=== PATIENT | female | born 2000 | race Two or more races ===

== ENCOUNTER 2021-04-30 14:46 | Emergency (ER) | payer OTHER ==
[~2021-04-30] VITALS: Ht 154.9 cm; Wt 75.3 kg
[2021-04-30] MEDS ORDERED: PRENA1 TRUE CO1 EACH (15:19)
[2021-04-30] MEDS ORDERED: VITAMIN D-40010 MCG (15:20)
== END 2021-04-30 17:33 | disposition home or self-care (01) ==
LOC: ER 14:46
DX: R10.2 Pelvic and perineal pain (principal); O26.892 Other specified pregnancy related conditions, second trimester; Z3A.21 21 weeks gestation of pregnancy; W07.XXXA Fall from chair, initial encounter; X58.XXXA Exposure to other specified factors, initial encounter; Z91.81 History of falling

== ENCOUNTER 2021-06-08 15:55 | Emergency (ER) | payer OTHER ==
[~2021-06-08] VITALS: Ht 180.3 cm; Wt 76.2 kg
[~2021-06-08 15:55] MED LIST: PRENA1 TRUE CO1 EACH; VITAMIN D-40010 MCG
[2021-06-08] MEDS ORDERED: MUCINEX DM ER1 EAC1 PO (22:33)
[2021-06-08] MEDS ORDERED: IPRAT-ALBUT 0.5-3 ML IH (22:33)
[2021-06-08] MEDS ORDERED: BUDESONIDE0.5 MG/2 M IH (22:33)
== END 2021-06-08 23:33 ==
LOC: ER 15:55
DX: U07.1 COVID-19 (principal); Z3A.21 21 weeks gestation of pregnancy; J98.01 Acute bronchospasm; O26.892 Other specified pregnancy related conditions, second trimester

== ENCOUNTER 2021-06-10 09:04 | Emergency (ER) | payer OTHER ==
[~2021-06-10] VITALS: Ht 154.9 cm; Wt 76.2 kg
[~2021-06-10 09:04] MED LIST changes: +BUDESONIDE0.5 MG/2 M IH; +IPRAT-ALBUT 0.5-3 ML IH; +MUCINEX DM ER1 EAC1 PO
== END 2021-06-10 13:12 | disposition home or self-care (01) ==
LOC: ER 09:04
DX: U07.1 COVID-19 (principal); Z33.1 Pregnant state, incidental; Z3A.00 Weeks of gestation of pregnancy not specified

== ENCOUNTER 2021-06-23 13:57 | Outpatient (CLI) | payer OTHER | END 2021-06-23 15:45 | disposition home or self-care (01) | LOC: PRENATAL 13:57 | PROVIDERS: ATTEND Obstetrics & Gynecology Maternal & Fetal Medicine | DX: O35.0XX1 Maternal care for (suspected) central nervous system malformation in fetus, fetus 1 (principal); O35.3XX1 Maternal care for (suspected) damage to fetus from viral disease in mother, fetus 1; O98.512 Other viral diseases complicating pregnancy, second trimester; O28.1 Abnormal biochemical finding on antenatal screening of mother; Z36.89 Encounter for other specified antenatal screening; Z3A.23 23 weeks gestation of pregnancy ==

== ENCOUNTER 2021-08-26 15:19 | Outpatient (CLI) | payer OTHER | END 2021-08-26 16:15 | disposition home or self-care (01) | LOC: PRENATAL 15:19 | PROVIDERS: ATTEND Obstetrics & Gynecology Maternal & Fetal Medicine | DX: O26.849 Uterine size-date discrepancy, unspecified trimester (principal); O35.0XX0 Maternal care for (suspected) central nervous system malformation in fetus, not applicable or unspecified; O28.1 Abnormal biochemical finding on antenatal screening of mother; O36.8199 Decreased fetal movements, unspecified trimester, other fetus; Z3A.33 33 weeks gestation of pregnancy ==

== ENCOUNTER 2021-10-19 06:33 | Inpatient (IN) | payer OTHER ==
[~2021-10-19] VITALS: Ht 154.9 cm; Wt 2.7 kg
== END 2021-10-23 12:18 | disposition home or self-care (01) | DRG 788 ==
LOC: LDR 06:33 → OB/GYN 06:33 → O/R 10-20 09:39 → OB/GYN 10-20 11:45
PROVIDERS: ADMIT Obstetrics & Gynecology; ATTEND Obstetrics & Gynecology
PROC: 4A1HXCZ Monitoring of Products of Conception, Cardiac Rate, External Approach (ICD-10-PCS; 2021-10-19)
PROC: 10D00Z1 Extraction of Products of Conception, Low, Open Approach (ICD-10-PCS; principal; 2021-10-20 08:45)
DX: O76 Abnormality in fetal heart rate and rhythm complicating labor and delivery (principal); O62.0 Primary inadequate contractions; Z3A.40 40 weeks gestation of pregnancy; Z37.0 Single live birth; Z20.822 Contact with and (suspected) exposure to COVID-19

== ENCOUNTER 2023-11-26 11:31 | Emergency (ER) | payer OTHER ==
[~2023-11-26] VITALS: Ht 154.9 cm; Wt 79.8 kg
[2023-11-26 13:14] LABS: HEMOGLOBIN 12.4 g/dL (12.0-15.00); MEAN CELL VOLUME 84.4 fL (80.00-100.00); MEAN CORPUSCULAR HGB CONC 34.3 g/dl (32.0-36.0); PLATELET COUNT 247 K/uL (150-450); RED BLOOD COUNT 4.27 M/uL (4.00-6.00); RED CELL DISTRIBUTION WIDTH 14.2 % (11.5-14.5)
[2023-11-26 13:43] LABS: URINE APPEARANCE Turbid; URINE BILIRRUBIN Negative (NEGATIVE); URINE BLOOD Moderate; URINE COLOR Dark Yellow; URINE GLUCOSE Negative (NEGATIVE); URINE LEUKOCYTE Moderate; URINE NITRATE Negative; URINE PROTEIN 30 (NEGATIVE)
[2023-11-26 13:44] LABS: URINE BACTERIA 316.2 uL (0.0-1933); URINE EPITHELIAL CELLS 7.5 uL (0.0-38.8); URINE RBC 175.5 uL (0.0-20.8)
[2023-11-26 13:48] LABS: CALCIUM 9.1 mg/dL (8.5-10.1); CREATININE SERUM 0.54 mg/dL (0.55-1.02); GFR 138.7; POTASSIUM 3.59 mEq/L (3.5-5.1)
[2023-11-26 14:05] LABS: URINE WBC > 5548.3 uL (0.0-23.2)
[2023-11-26] MEDS ORDERED: CEFTRIAXONE SODIUM 1,000 MG VIAL IM STA (14:26)
== END 2023-11-26 14:43 | disposition home or self-care (01) ==
LOC: ER 11:32
PROVIDERS: General Practice
DX: O26.892 Other specified pregnancy related conditions, second trimester (principal); Z3A.18 18 weeks gestation of pregnancy; R30.0 Dysuria

== ENCOUNTER 2024-02-10 03:31 | Emergency (ER) | payer OTHER ==
[~2024-02-10] VITALS: Ht 154.9 cm; Wt 88.5 kg
[2024-02-10] MEDS ORDERED: MAGNESIUM SULFATE IN WATER 4 GM/100 ML PIGGYBACK IV STA (04:14)
[2024-02-10] MEDS ORDERED: METHYLPREDNISOLONE SOD SUCC 125 MG VIAL IV STA (04:15)
[2024-02-10] MEDS ORDERED: HYDROCODONE/CHLORPHEN P-STIREX 5 ML ML PO STA (04:15)
[2024-02-10] MEDS ORDERED: IPRATROPIUM/ALBUTEROL SULFATE 3 ML AMPUL.NEB IH ONE (04:17)
[2024-02-10] MEDS ORDERED: MAGNESIUM SULFATE 50% 5,000 MG/10 ML VIAL ONE (04:22)
[2024-02-10] MEDS ORDERED: METHYLPREDNISOLONE SOD SUCC 125 MG VIAL ONE (04:22)
[2024-02-10 04:23] LABS: HEMATOCRIT 30.6 % (36.0-45.00); HEMOGLOBIN 10.7 g/dL (12.0-15.00); MEAN CELL VOLUME 82.2 fL (80.00-100.00); MEAN CORPUSCULAR HEMOGLOBIN 28.7 pg (27.00-32.0); PLATELET COUNT 216 K/uL (150-450); RED BLOOD COUNT 3.73 M/uL (4.00-6.00); RED CELL DISTRIBUTION WIDTH 13.5 % (11.5-14.5)
[2024-02-10 04:40] LABS: ABG PH 7.439 (7.35-7.45); ABG PO2 114.5 mmHg (80-100); ABG pCO2 28.4 mmHg (35-45); BASE EXCESS -3.8 mmol/l; SaO2 98.6 %
[2024-02-10 04:41] LABS: BICARBONATE 18.8 mmol/l (23-25); Tco2 19.7 mmol/l; allen test SATISFACTORY; o2 21 %; puncture site RADIAL RIGHT
[2024-02-10 04:46] LABS: ALBUMIN 2.6 gm/dL (3.4-5.0); BILIRUBIN TOTAL 0.14 mg/dL (0.3-1.2); CALCIUM 8.8 mg/dL (8.5-10.1); CREATININE SERUM 0.49 mg/dL (0.55-1.02); GFR 155.16; GLOBULINA 3.8 G/DL (2.4-3.5); POTASSIUM 3.82 mEq/L (3.5-5.1); TOTAL PROTEIN 6.4 gm/dL (6.4-8.2)
[2024-02-10] MEDS ORDERED: IPRATROPIUM/ALBUTEROL SULFATE 3 ML AMPUL.NEB IH SCH (05:00)
== END 2024-02-10 07:24 | disposition home or self-care (01) ==
LOC: ER 03:32
DX: Z34.93 Encounter for supervision of normal pregnancy, unspecified, third trimester (principal); J45.902 Unspecified asthma with status asthmaticus; R05.9 Cough, unspecified; Z20.822 Contact with and (suspected) exposure to COVID-19

== ENCOUNTER 2024-03-05 20:23 | Inpatient (IN) | payer OTHER ==
[~2024-03-05] VITALS: Ht 154.9 cm; Wt 88.0 kg
[2024-03-05 19:16] VITALS: BP 104/65
[~2024-03-05 20:23] MED LIST changes: -0.9 % SODIUM CHLORIDE 1,000 ML IV ONE; -FAMOtidine 10 MG/ML (4ML VIAL) IV ONE; -IRON325 MG; -PROAIR RESPICL90 MCG
[2024-03-05] MEDS ORDERED: IRON325 MG (20:43)
[2024-03-05] MEDS ORDERED: GUAIFENESIN 200 MG/10 ML BLIST.PACK PO PRN (22:00)
[2024-03-05] MEDS ORDERED: LEVALBUTEROL HCL 1.25 MG/3 ML SOLUTION IH PRN (22:00)
[2024-03-05] MEDS ORDERED: hydrOXYzine PAMOATE 50 MG CAPSULE PO PRN (22:30)
[2024-03-05] MEDS ORDERED: PROAIR RESPICL90 MCG (22:47)
[2024-03-05] MEDS ORDERED: RINGERS SOLUTION,LACTATED 1,000 ML IV SCH (23:15)
[2024-03-05 23:25] VITALS: BP 103/58; O2SAT 99
[2024-03-06] VITALS (7 sets, daily range): BP systolic 97–122; BP diastolic 61–73; O2SAT 99–100
[2024-03-07 03:40] VITALS: BP 96/56
[2024-03-07 06:06] VITALS: BP 92/55; O2SAT 99
[2024-03-07 12:37] VITALS: BP 96/58; O2SAT 97
[2024-03-07] MEDS ORDERED: MAG HYDROX/ALUMINUM HYD/SIMETH 30 ML BLIST.PACK PO SCH (13:00)
[2024-03-07 15:30] VITALS: BP 103/66; O2SAT 99
[2024-03-07] MEDS ORDERED: FAMOtidine 20 MG TABLET PO SCH (17:00)
[2024-03-07] MEDS ORDERED: BUDESONIDE 0.5 MG/2 ML AMPUL.NEB IH SCH (17:00)
[2024-03-07] MEDS ORDERED: LEVALBUTEROL HCL 0.63 MG/3 ML SOLUTION IH SCH (18:00)
[2024-03-07 19:43] VITALS: BP 100/61; O2SAT 100
[2024-03-07 23:34] VITALS: BP 97/60
[2024-03-08 04:54] VITALS: BP 100/64
[2024-03-08 06:02] VITALS: BP 86/51; O2SAT 99
[2024-03-08 07:22] VITALS: BP 103/67
[2024-03-08] MEDS ORDERED: SOD FERRIC GLUC COMPLX/SUCROSE 125 MG in 0.9 % SODIUM CHLORIDE 100 ML IV SCH (09:00)
[2024-03-08] MEDS ORDERED: BUDESONIDE 0.5 MG/2 ML AMPUL.NEB IH SCH (09:00)
[2024-03-08 11:26] VITALS: BP 111/60
[2024-03-08 15:13] VITALS: BP 99/65
[2024-03-08] MEDS ORDERED: XOPENEX HFA15 GM IH (16:42)
== END 2024-03-08 17:50 | disposition home or self-care (01) | DRG 833 ==
LOC: OBS/DEL 20:23 → LDR 03-06 09:28
PROVIDERS: ADMIT Specialist; ATTEND Specialist
PROC: 4A1HXCZ Monitoring of Products of Conception, Cardiac Rate, External Approach (ICD-10-PCS; principal; 2024-03-06)
PROC: 3E0F7GC Introduction of Other Therapeutic Substance into Respiratory Tract, Via Natural or Artificial Opening (ICD-10-PCS; 2024-03-06)
PROC: BY4FZZZ Ultrasonography of Third Trimester, Single Fetus (ICD-10-PCS; 2024-03-06)
PROC: BU4CZZZ Ultrasonography of Uterus and Ovaries (ICD-10-PCS; 2024-03-06)
DX: O26.893 Other specified pregnancy related conditions, third trimester (principal); R05.9 Cough, unspecified; E86.0 Dehydration; R00.0 Tachycardia, unspecified; O60.03 Preterm labor without delivery, third trimester; O36.8130 Decreased fetal movements, third trimester, not applicable or unspecified; O26.843 Uterine size-date discrepancy, third trimester; O99.013 Anemia complicating pregnancy, third trimester; D64.9 Anemia, unspecified; Z3A.33 33 weeks gestation of pregnancy; Z20.822 Contact with and (suspected) exposure to COVID-19

== ENCOUNTER → 2024-03-05 | Emergency (ER) | payer OTHER ==
[~2024-03-05] VITALS: Ht 154.9 cm; Wt 89.4 kg
[~2024-03-05] MED LIST changes: +0.9 % SODIUM CHLORIDE 1,000 ML IV ONE; +FAMOtidine 10 MG/ML (4ML VIAL) IV ONE; +IRON325 MG; +PROAIR RESPICL90 MCG
[2024-03-05 18:23] LABS: HEMATOCRIT 30.6 % (36.0-45.00); HEMOGLOBIN 10.4 g/dL (12.0-15.00); MEAN CELL VOLUME 82.2 fL (80.00-100.00); PLATELET COUNT 215 K/uL (150-450); RED BLOOD COUNT 3.72 M/uL (4.00-6.00); RED CELL DISTRIBUTION WIDTH 13.6 % (11.5-14.5)
[2024-03-05 18:34] LABS: URINE APPEARANCE Clear; URINE BILIRRUBIN Negative (NEGATIVE); URINE BLOOD Negative; URINE COLOR Yellow; URINE GLUCOSE Negative (NEGATIVE); URINE KETONE Negative (NEGATIVE); URINE LEUKOCYTE Negative; URINE NITRATE Negative; URINE PROTEIN Negative (NEGATIVE); URINE UROBILINOGEN 0.2 E.U./dl
[2024-03-05 18:35] LABS: URINE BACTERIA 792.4 uL (0.0-1933); URINE EPITHELIAL CELLS 58.5 uL (0.0-38.8); URINE RBC 3.6 uL (0.0-20.8); URINE WBC 6.6 uL (0.0-23.2)
[2024-03-05 18:49] LABS: INR 0.96; PROTHROMBIN TIME 10.5 SECONDS (9.0-11.5)
[2024-03-05 18:59] LABS: D DIMER 4.27 MG/L; PARTIAL THROMBOPLASTIN TIME 27.2 SECONDS (22.0-34.0)
[2024-03-05 19:14] LABS: ALBUMIN 2.7 gm/dL (3.4-5.0); BILIRUBIN TOTAL 0.18 mg/dL (0.3-1.2); CALCIUM 8.8 mg/dL (8.5-10.1); CREATININE SERUM 0.51 mg/dL (0.55-1.02); GFR 148.15; GLOBULINA 3.1 G/DL (2.4-3.5); POTASSIUM 4.17 mEq/L (3.5-5.1); TOTAL PROTEIN 5.8 gm/dL (6.4-8.2)
[2024-03-05 23:31] LABS: ABG PO2 103.1 mmHg (80-100); ABG pCO2 27.7 mmHg (35-45); BICARBONATE 19.2 mmol/l (23-25); Tco2 20.1 mmol/l; o2 21 %
[2024-03-05 23:32] LABS: allen test SATISFACTORY; puncture site RADIAL LEFT
[2024-03-05 23:35] LABS: SaO2 98.2 %
== END | disposition home or self-care (01) ==
LOC: ER 15:44
PROVIDERS: General Practice
DX: O26.893 Other specified pregnancy related conditions, third trimester (principal); Z3A.36 36 weeks gestation of pregnancy; R00.0 Tachycardia, unspecified

== ENCOUNTER 2024-04-08 07:45 | Inpatient (IN) | payer OTHER ==
[~2024-04-08] VITALS: Ht 154.9 cm; Wt 90.7 kg
[~2024-04-08 07:45] MED LIST changes: +IRON325 MG; +PROAIR RESPICL90 MCG; +XOPENEX HFA15 GM IH
[2024-04-08 11:07] LABS: URINE APPEARANCE Cloudy; URINE BILIRRUBIN Negative (NEGATIVE); URINE BLOOD Negative; URINE COLOR Yellow; URINE GLUCOSE Negative (NEGATIVE); URINE KETONE Negative (NEGATIVE); URINE LEUKOCYTE Trace; URINE NITRATE Negative; URINE PROTEIN Negative (NEGATIVE); URINE UROBILINOGEN 0.2 E.U./dl
[2024-04-08 11:12] LABS: URINE BACTERIA 990.2 uL (0.0-1933); URINE EPITHELIAL CELLS 132.3 uL (0.0-38.8); URINE RBC 7.7 uL (0.0-20.8); URINE WBC 44.9 uL (0.0-23.2)
[2024-04-08 11:14] LABS: HEMATOCRIT 34.2 % (36.0-45.00); HEMOGLOBIN 11.6 g/dL (12.0-15.00); MEAN CELL VOLUME 82.6 fL (80.00-100.00); MEAN CORPUSCULAR HEMOGLOBIN 28.1 pg (27.00-32.0); MEAN CORPUSCULAR HGB CONC 34.1 g/dl (32.0-36.0); PLATELET COUNT 185 K/uL (150-450); RED BLOOD COUNT 4.14 M/uL (4.00-6.00)
[2024-04-08 11:15] LABS: URINE CAST 0.45 uL (0.0-1.40)
[2024-04-08 11:24] LABS: RED CELL DISTRIBUTION WIDTH 17.7 % (11.5-14.5)
[2024-04-08 11:30] LABS: INR 0.96; PARTIAL THROMBOPLASTIN TIME 29.5 SECONDS (22.0-34.0); PROTHROMBIN TIME 10.5 SECONDS (9.0-11.5)
[2024-04-08 11:44] LABS: ALBUMIN 2.9 gm/dL (3.4-5.0); BILIRUBIN TOTAL 0.33 mg/dL (0.3-1.2); CALCIUM 9.2 mg/dL (8.5-10.1); CREATININE SERUM 0.53 mg/dL (0.55-1.02); GFR 141.72; GLOBULINA 2.9 G/DL (2.4-3.5); POTASSIUM 4.11 mEq/L (3.5-5.1); TOTAL PROTEIN 5.8 gm/dL (6.4-8.2)
[2024-04-15 12:54] VITALS: BP 111/67
[2024-04-15] MEDS ORDERED: ERYTHROMYCIN BASE OPHT 1GM EACH TUBE OP ONE (22:15)
[2024-04-15] MEDS ORDERED: CEFAZOLIN SODIUM 2,000 MG in 0.9 % SODIUM CHLORIDE 100 ML IV ONE (22:15)
[2024-04-15] MEDS ORDERED: OXYTOCIN 10 UNITS/ML VIAL IV ONE (22:30)
[2024-04-15] MEDS ORDERED: CITRIC ACID/SODIUM CITRATE 30 ML BLIST.PACK PO ONE (22:30)
[2024-04-15] MEDS ORDERED: PROMETHAZINE HCL 25 MG/ML AMPUL IV SCH (23:15)
[2024-04-15] MEDS ORDERED: KETOROLAC TROMETHAMINE 60 MG VIAL IM ONE (23:15)
[2024-04-15] MEDS ORDERED: MEPERIDINE HCL/PF 50 MG/ML VIAL IV SCH (23:15)
[2024-04-15] MEDS ORDERED: MORPHINE SULFATE 4 MG/ML VIAL IV ONE (23:40)
[2024-04-15] MEDS ORDERED: ONDANSETRON HCL 2 MG/ML VIAL IV ONE (23:50)
[2024-04-16] MEDS ORDERED: MORPHINE SULFATE 4 MG/ML VIAL IV ONE (01:00)
[2024-04-16 06:00] VITALS: BP 121/77
[2024-04-16 06:49] LABS: HEMATOCRIT 35.8 % (36.0-45.00); HEMOGLOBIN 12.2 g/dL (12.0-15.00); MEAN CELL VOLUME 82.5 fL (80.00-100.00); MEAN CORPUSCULAR HEMOGLOBIN 28.1 pg (27.00-32.0); MEAN CORPUSCULAR HGB CONC 34.1 g/dl (32.0-36.0); PLATELET COUNT 179 K/uL (150-450); RED BLOOD COUNT 4.34 M/uL (4.00-6.00); RED CELL DISTRIBUTION WIDTH 18.7 % (11.5-14.5)
[2024-04-16] MEDS ORDERED: OxyCODONE HCL/APAP UD (PERCOCET) PO SCH (08:00)
[2024-04-16 08:32] VITALS: BP 110/64
[2024-04-16] MEDS ORDERED: DOCUSATE CALCIUM 240 MG CAPSULE PO SCH (09:00)
[2024-04-16] MEDS ORDERED: SIMETHICONE 125 MG CAPSULE PO SCH (09:00)
[2024-04-16] MEDS ORDERED: IBUprofen 800 MG TABLET PO SCH (13:00)
[2024-04-16 16:04] VITALS: BP 117/74
[2024-04-16 20:14] VITALS: BP 118/73
[2024-04-17 01:10] VITALS: BP 111/69
[2024-04-17 08:50] VITALS: BP 139/78
[2024-04-17 13:31] VITALS: BP 133/72
[2024-04-17] MEDS ORDERED: MINERAL OIL 30 ML BLIST.PACK PO STA (16:07)
[2024-04-17] MEDS ORDERED: MAGNESIUM HYDROXIDE 30 ML BLIST.PACK PO STA (16:07)
[2024-04-17] MEDS ORDERED: BISACODYL 10 MG/SUPP.RECT SUPP.RECT RECTAL STA (16:08)
[2024-04-17 16:11] VITALS: BP 101/64
[2024-04-18 01:02] VITALS: BP 108/64
[2024-04-18 05:11] VITALS: BP 121/77
[2024-04-18] MEDS ORDERED: COLACE100 MG PO (07:32)
[2024-04-18] MEDS ORDERED: IBU800 MG PO (07:32)
[2024-04-18] MEDS ORDERED: SIMETHICONE125 M1 PO (07:32)
[2024-04-18] MEDS ORDERED: DOCUSATE CALCIUM 240 MG CAPSULE PO SCH (09:00)
[2024-04-18 10:13] VITALS: BP 119/75
== END 2024-04-18 13:13 | disposition home or self-care (01) | DRG 785 ==
LOC: LDR 04-15 07:45 → OB/GYN 04-15 16:40 → O/R 04-15 16:40 → OB/GYN 04-15 23:59
PROVIDERS: ADMIT Specialist; ATTEND Specialist
PROC: 0UB70ZZ Excision of Bilateral Fallopian Tubes, Open Approach (ICD-10-PCS; 2024-04-15)
PROC: 4A1HXCZ Monitoring of Products of Conception, Cardiac Rate, External Approach (ICD-10-PCS; 2024-04-15)
PROC: 10D00Z1 Extraction of Products of Conception, Low, Open Approach (ICD-10-PCS; principal; 2024-04-15 08:30)
DX: O34.211 Maternal care for low transverse scar from previous cesarean delivery (principal); Z30.2 Encounter for sterilization; Z3A.39 39 weeks gestation of pregnancy; Z37.0 Single live birth; Z20.822 Contact with and (suspected) exposure to COVID-19

== ENCOUNTER 2024-04-11 21:35 | Outpatient (CLI) | payer OTHER ==
[2024-04-11 20:39] VITALS: BP 108/67
[2024-04-11] MEDS ORDERED: RINGERS SOLUTION,LACTATED 1,000 ML IV SCH (21:45)
[2024-04-11 22:10] LABS: HEMATOCRIT 34.2 % (36.0-45.00); HEMOGLOBIN 11.3 g/dL (12.0-15.00); MEAN CELL VOLUME 83.4 fL (80.00-100.00); MEAN CORPUSCULAR HEMOGLOBIN 27.5 pg (27.00-32.0); PLATELET COUNT 188 K/uL (150-450); RED CELL DISTRIBUTION WIDTH 18.6 % (11.5-14.5)
[2024-04-11 22:27] LABS: INR 0.96; PARTIAL THROMBOPLASTIN TIME 28.8 SECONDS (22.0-34.0); PROTHROMBIN TIME 10.5 SECONDS (9.0-11.5)
[2024-04-11 22:35] LABS: ALBUMIN 2.6 gm/dL (3.4-5.0); BILIRUBIN TOTAL 0.26 mg/dL (0.3-1.2); CALCIUM 8.5 mg/dL (8.5-10.1); CREATININE SERUM 0.52 mg/dL (0.55-1.02); GFR 144.87; GLOBULINA 2.7 G/DL (2.4-3.5); POTASSIUM 3.7 mEq/L (3.5-5.1); TOTAL PROTEIN 5.3 gm/dL (6.4-8.2)
[2024-04-11 23:22] VITALS: BP 113/70
[2024-04-12 00:50] VITALS: BP 113/70
== END 2024-04-12 07:33 | disposition left against medical advice (07) ==
LOC: OBS/DEL 21:35
PROVIDERS: ATTEND Specialist
DX: O36.8130 Decreased fetal movements, third trimester, not applicable or unspecified (principal); Z3A.38 38 weeks gestation of pregnancy